=== PATIENT | female | born 1995 | race Caucasian/White ===

== ENCOUNTER 2021-12-04 15:34 | Emergency (ER) | payer OTHER, SELFPAY ==
[2021-12-04 15:40] VITALS: BP 141/112; PULSE 117; TEMP 35.9; O2SAT 97; BMI 22.3
--- NOTE | 2021-12-04 16:26 | ED.ANXIETY ---
HPI - Anxiety General Chief Complaint: Anxiety Stated Complaint: panic attack, chest/throat tightness, high HR Time Seen by Provider: 12/04/21 15:50 History of Present Illness HPI narrative: This 26-year-old female is in reporting lots of anxiety and some depression. She has a background history of anxiety and depression in is taking fluoxetine and buproprion. Her symptoms are much worse recently because of the break-up of a significant relationship is been involved in for a long time. She states that she is not feeling unsafe to herself. She does not have any history of harming herself or hospitalization with regard to her mood or circumstances. She does not report any auditory or visual hallucinations. She does not have any other health concerns or past medical history she does feel some tightness in her throat and some diffuse chest tightness that she attributes to her anxiety. Her heart rate is slightly increased at around 105 beats per minute. Related Data Home Medications Medication Instructions Recorded Confirmed bupropion HCl 150 mg 24 hr tablet, mg PO 12/04/21 extended release fluoxetine 10 mg capsule mg 12/04/21 hydroxyzine HCl 10 mg tablet mg 12/04/21 spironolactone 100 mg tablet mg 12/04/21 Previous Rx's Medication Instructions Recorded lorazepam 0.5 mg tablet (Ativan) 0.5 mg PO BID PRN anxiety #14 tabs 12/04/21 Allergies Allergy/AdvReac Type Severity Reaction Status Date / Time No Known Drug Allergies Allergy Verified 12/04/21 15:44 Review of Systems Status of ROS: Reports: 10 or more systems reviewed and unremarkable except as noted in History and below Narrative: Constitutional: No fevers, no weight gain or loss. Eyes: No discharge. No vision changes. HENT: No congestion, no sore throat, no ear pain. Cardiovascular: No chest pain, no palpitations. Respiratory: No shortness of breath, no wheezes, no cough. Gastrointestinal: No abdominal pain, no vomiting, no diarrhea. Genitourinary: No dysuria, no hematuria. Musculoskeletal: Normal range of motion. Skin: No rashes, no pruritis. Neurological: No dizziness, weakness, sensory change, speech change. Endo/Heme/Allergies: No bruising or bleeding. No polydipsia. Pysch: no suicidality. anxiety and depression symptoms are amplified because of recent circumstances. All other systems reviewed and are negative. PFSH PFSH Social History Smoking Status: Never smoker Do you use any of these nicotine containing products: None Second hand tobacco smoke exposure: No How often do you have a drink containing alcohol: never How often do you have six or more drinks on one occasion: Never AUDIT-C Alcohol total score: 0 Non-prescribed substance use: marijuana (any form) Exam Narrative: Exam Narrative: Constitutional: Well-developed, well-nourished, no acute distress. HEENT: Normocephalic, atraumatic. Neck: Normal range of motion. Nontender. Supple. Heart: Regular. No murmurs. Normal rate. Intact distal pulses. Lungs: Clear to auscultation. No chest discomfort. No wheezes, rhonchi, or rales. Abdomen: Normal bowel sounds. Nontender. No rebound tenderness. Genitalia: Deferred. Back: No midline tenderness. Normal range of motion. Extremities: Normal range of motion. No injury. Skin: Intact. No rash. Warm. No erythema or pallor. Neurologic: No altered sensation. No weakness. Alert and oriented. Psychiatric: This patient denies any suicidal thoughts or plans. She is tearful and reiterates significant distress with anxiety and depression. Nursing notes and vitals signs are reviewed. Const: Vital Signs, click to edit/add: Vital Signs - 24 hr 12/04/21 15:40 Temperature 96.6 F L Pulse Rate [Left P ulse Oximeter] 117 H Blood Pressure [Ri ght Upper Arm] 141/112 H Pulse Oximetry 97 Oxygen Delivery Me thod Room Air Course Vital Signs Vital signs: Initial Vital Signs Temperature 96.6 F L 12/04/21 15:40 Temperature Source Temporal Artery Scan 12/04/21 15:40 Pulse Rate 117 H 12/04/21 15:40 Blood Pressure 141/112 H 12/04/21 15:40 Blood Pressure Mean 121 12/04/21 15:40 Blood Pressure Position Sitting 12/04/21 15:40 Pulse Oximetry 97 12/04/21 15:40 Oxygen Delivery Method 12/04/21 15:40 Vital Signs Temperature 96.6 F L 12/04/21 15:40 Pulse Rate 117 H 12/04/21 15:40 Blood Pressure 141/112 H 12/04/21 15:40 Pulse Oximetry 97 12/04/21 15:40 Oxygen Delivery Method 12/04/21 15:40 Temperature 96.6 F L 12/04/21 15:40 Pulse Rate 117 H 12/04/21 15:40 Blood Pressure 141/112 H 12/04/21 15:40 Pulse Oximetry 97 12/04/21 15:40 Oxygen Delivery Method 12/04/21 15:40 MDM - Anxiety MDM Narrative Medical decision making narrative: This patient Is in with adjustment reaction symptoms on top of a pre-existing diagnosis of anxiety and depression. I did offer labs and imaging along tele health mental assessment. Is not exhibiting any significant concern for unsafe T to herself. She agrees that she does not feel unsafe but is simply hoping to feel better into a psychiatrist appointment that she has in 3 days. I stated that she could benefit from a few tablets of Ativan during this short time until seeing her psychiatrist. I explained that this is not a good long-term plan. If not improving or worsening symptoms happen in the meantime she can always return further evaluation and treatment. Discharge Plan Discharge Clinical Impression: Acute anxiety, Adjustment reaction with anxiety and depression Patient Disposition: Home, Self-Care Condition: Stable Instructions: Anxiety (ED) Additional Instructions: Take medication as needed and indicated. Prescriptions: New lorazepam [Ativan] 0.5 mg tablet 0.5 mg PO BID PRN (Reason: anxiety) Qty: 14 0RF No Action spironolactone 100 mg tablet Label Comments: TAKE 1 TABLET BY MOUTH EVERY DAY fluoxetine 10 mg capsule Label Comments: TAKE ONE CAPSULE EVERY OTHER DAY (PATIENT PREFERENCE) hydroxyzine HCl 10 mg tablet Label Comments: TAKE 1-2 TABLETS BY MOUTH AT BEDTIME NEEDED FOR ANXIETY. bupropion HCl 150 mg tablet extended release 24 hr PO Label Comments: TAKE 1 TABLET BY MOUTH EVERY DAY IN THE MORNING Stand Alone Forms: Primary Data Info Instructions
[2021-12-04 16:51] VITALS: PULSE 102; O2SAT 97
== END 2021-12-04 16:52 | disposition home or self-care (01) ==
LOC: ED 16:45
PROVIDERS: Emergency Provider Emergency Medicine Emergency Medical Services
DX: F41.9 Anxiety disorder, unspecified (principal); F43.20 Adjustment disorder, unspecified
CPT/HCPCS: 99283; 99284